=== PATIENT | male | born 1930 | race Caucasian/White ===

== ENCOUNTER 2017-06-07 14:12 | Observation (INO) ==
--- NOTE | 2017-06-07 15:07 | Emergency Department Note ---
Disposition Clinical Impression: TIA (transient ischemic attack) Qualifiers: Transient cerebral ischemia type: unspecified Qualified Code(s): G45.9 - Transient cerebral ischemic attack, unspecified Disposition: Admitted As Inpatient Condition: Fair Referrals: Nithin Oh DO [Primary Care Provider] - Forms: ED Satisfaction Letter Time of Disposition: 17:47 Weakness HPI - General Chief complaint: ED Weakness Stated complaint: face hot, hand went numb Time Seen by Provider: 06/07/17 14:39 Source: patient Mode of arrival: ambulatory Limitations: no limitations Nursing Notes Reviewed: Yes Vital Signs Reviewed: Yes - History of Present Illness HPI Narrative: 86-year-old male who states he developed acute onset left hand and arm numbness and weakness. States it occurred just prior to arrival. The patient states that his symptoms have improved since onset. 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 Constitutional: Denies: fever, chills, weakness, weight change Eyes: Denies: eye pain, eye discharge, vision change ENT ED: Denies: ear pain, throat pain, dental pain, hearing loss, epistaxis, congestion, dysphagia Cardiovascular: Denies: chest pain, palpitations, dyspnea on exertion, edema, syncope Respiratory: Denies: cough, dyspnea, wheezes, hemoptysis, stridor Gastrointestinal: Denies: abdominal pain, nausea, vomiting, diarrhea, constipation, hematemesis, melena, hematochezia Genitourinary: Denies: urgency, dysuria, frequency, hematuria Musculoskeletal: Denies: back pain, neck pain, arthralgia, myalgia Integumentary: Denies: rash, abrasion, lesions Neurological: Reports: weakness, numbness. Denies: headache, paresthesias, confusion, abnormal gait, vertigo Psychiatric: Denies: anxiety, depression, suicidal thoughts, homicidal thoughts , auditory hallucinations, visual hallucinations Endocrine: Denies: fatigue Hematological/Lymphatic: Denies: easy bleeding, easy bruising Allergic/Immunologic: Denies: facial swelling, urticaria Past Medical History - Past Medical History Medical history: Reports: hypertension Psychiatric history: Reports: no psych history - Social History Smoking Status: Never smoker Smokeless Tobacco Status: No Alcohol use: Reports: none Drug use: Reports: none Physical Exam - General Limitations: no limitations General appearance: alert, in no apparent distress - Head Head exam: atraumatic, normocephalic, normal inspection - Eye Eye exam: Present: normal appearance, PERRL, EOMI - ENT ENT exam: normal exam, normal oropharynx, mucous membranes moist - Neck Neck exam: Present: normal inspection, full ROM, trachea midline - Chest Chest inspection: Present: normal inspection, symmetric chest wall rise - Respiratory Respiratory exam: Present: normal lung sounds bilaterally - Cardiovascular Cardiovascular exam: Present: regular rate, normal rhythm, normal heart sounds - Abdominal Exam Abdominal exam: Present: soft, Non-Tender. Absent: tenderness, distention, guarding, rebound, rigidity - Extremities Exam Extremities exam: Present: normal inspection, full ROM. Absent: tenderness, pedal edema - Expanded Lower Extremity Exam Neurovascular/Tendon exam: Absent: motor deficit, sensory deficit, tendon deficit Gait: observed and normal - Back Exam Back exam: Present: normal inspection - Neurological Exam Neurological exam: Present: alert, oriented X3 - Psychiatric Psychiatric exam: Present: normal affect, normal mood - Skin Skin exam: Present: warm, dry, intact, normal color Course - Reevaluation(s) Reevaluation #1: 86-year-old who stated he had weakness and numbness in his left hand had trouble using it. That has since resolved. States it lasted several minutes. CT the head is negative for acute findings will admit for TIA evaluation. Time: 17:47 Vital Signs Temperature 98.2 F 06/07/17 14:22 Pulse Rate 69 06/07/17 14:22 Respiratory Rate 16 06/07/17 14:22 Blood Pressure 161/71 06/07/17 14:22 O2 Sat by Pulse Oximetry 98 06/07/17 14:22 Temperature 98.2 F 06/07/17 14:22 Pulse Rate 67 06/07/17 17:05 Respiratory Rate 16 06/07/17 17:05 Blood Pressure 173/85 06/07/17 17:05 O2 Sat by Pulse Oximetry 100 06/07/17 17:05 Oxygen Delivery Oxygen Delivery Room Air Weakness - Lab Data Lab results reviewed: Yes I reviewed the patient's lab results. Result diagrams: 06/07/17 15:39 06/07/17 15:39 Lab Results 06/07/17 06/07/17 06/07/17 Range/Units 14:48 15:39 15:39 WBC 6.5 (4.3-11.1) K/mcL RBC 4.55 (4.19-5.50) M/mcL Hgb 13.7 (12.9-16.9) g/dL Hct 41.2 (37.5-50.1) % MCV 90.5 (83.0-100.0) fL MCH 30.1 (28.0-33.3) pg MCHC 33.3 (31.6-35.5) g/dL RDW 13.3 (11.5-14.5) % Plt Count 204 (140-400) K/mcL MPV 10.9 (9.4-12.4) fL Immature Gran % 0.2 (0-4) % Seg Neutrophils % 59.3 % Lymphocytes % 27.3 % Monocytes % 11.1 % Eosinophils % 1.5 % Basophils % 0.6 % Neutrophils # 3.9 (1.6-8.9) K/mcL Lymphocytes # 1.8 (0.6-4.6) K/mcL Monocytes # 0.7 (0.0-1.3) K/mcL Eosinophils # 0.1 (0.0-0.6) K/mcL Basophils # 0.0 (0.0-0.2) K/mcL Sodium 139 (136-145) mEq/L Potassium 4.2 (3.5-4.5) mEq/L Chloride 101 (98-109) mEq/L Carbon Dioxide 31 H (19-29) mEq/L BUN 20 (8-26) mg/dL Creatinine 0.95 (0.72-1.25) mg/dL Est GFR ( Amer) > 60 (> 60) Est GFR (Non-Af Amer) > 60 (> 60) BUN/Creatinine Ratio 21 (6-26) Glucose 98 (70-99) mg/dL Calculated Osmolality 291 (280-300) Calcium 9.5 (8.6-10.8) mg/dL Total Bilirubin 0.3 (0.2-1.2) mg/dL AST 30 (5-34) Units/L ALT 14 (0-55) Units/L Alkaline Phosphatase 95 (38-126) Units/L Troponin I (0-0.03) ng/mL Serum Total Protein 7.6 (6.0-8.3) g/dL Albumin 3.6 (3.5-5.0) g/dL Globulin 4.0 H (2.4-3.5) g/dL Albumin/Globulin Ratio 0.9 L (1.1-2.2) Urine Color Yellow (Yellow) Urine Clarity Clear (Clear) Urine pH 7.0 (5.0-8.0) pH Units Ur Specific [place] 1.011 (1.010-1.025) Urine Protein Negative (Neg-Trace) mg/dL Urine Glucose (UA) Normal (Normal) mg/dL Urine Ketones Negative (Negative) mg/dL Urine Blood Negative (Negative) Urine Nitrite Negative (Negative) Urine Bilirubin Negative (Negative) Urine Urobilinogen Normal (Normal) mg/dL Ur Leukocyte Esterase Negative (Negative) Ur Culture Indicated? NO (NO) 06/07/17 Range/Units 15:39 WBC (4.3-11.1) K/mcL RBC (4.19-5.50) M/mcL Hgb (12.9-16.9) g/dL Hct (37.5-50.1) % MCV (83.0-100.0) fL MCH (28.0-33.3) pg MCHC (31.6-35.5) g/dL RDW (11.5-14.5) % Plt Count (140-400) K/mcL MPV (9.4-12.4) fL Immature Gran % (0-4) % Seg Neutrophils % % Lymphocytes % % Monocytes % % Eosinophils % % Basophils % % Neutrophils # (1.6-8.9) K/mcL Lymphocytes # (0.6-4.6) K/mcL Monocytes # (0.0-1.3) K/mcL Eosinophils # (0.0-0.6) K/mcL Basophils # (0.0-0.2) K/mcL Sodium (136-145) mEq/L Potassium (3.5-4.5) mEq/L Chloride (98-109) mEq/L Carbon Dioxide (19-29) mEq/L BUN (8-26) mg/dL Creatinine (0.72-1.25) mg/dL Est GFR ( Amer) (> 60) Est GFR (Non-Af Amer) (> 60) BUN/Creatinine Ratio (6-26) Glucose (70-99) mg/dL Calculated Osmolality (280-300) Calcium (8.6-10.8) mg/dL Total Bilirubin (0.2-1.2) mg/dL AST (5-34) Units/L ALT (0-55) Units/L Alkaline Phosphatase (38-126) Units/L Troponin I 0.00 (0-0.03) ng/mL Serum Total Protein (6.0-8.3) g/dL Albumin (3.5-5.0) g/dL Globulin (2.4-3.5) g/dL Albumin/Globulin Ratio (1.1-2.2) Urine Color (Yellow) Urine Clarity (Clear) Urine pH (5.0-8.0) pH Units Ur Specific [place] (1.010-1.025) Urine Protein (Neg-Trace) mg/dL Urine Glucose (UA) (Normal) mg/dL Urine Ketones (Negative) mg/dL Urine Blood (Negative) Urine Nitrite (Negative) Urine Bilirubin (Negative) Urine Urobilinogen (Normal) mg/dL Ur Leukocyte Esterase (Negative) Ur Culture Indicated? (NO) - Radiology Data Radiology results reviewed: Yes I reviewed the patient's radiology results. Chest X-Ray 06/07/17 15:01 IMPRESSION: No active cardiopulmonary disease D/ / Papo Alexis MD / Papo Alexis MD Interpreting Provider: Papo Alexis MD Head CT 06/07/17 15:01 IMPRESSION: No acute intracranial abnormality. D/ / Freddy Shah MD / Freddy Shah MD Interpreting Provider: Freddy Shah MD - EKG Data EKG attestation: Yes I reviewed and interpreted this EKG. EKG shows normal: sinus rhythm Rate: normal Rhythm: NSR Interpretation: no acute changes NIH Stroke Scale - Level of Consciousness LOC: Alert - LOC Questions LOC Questions: Answers both correctly - LOC Commands LOC Commands: Performs both correctly - Best Gaze Best Gaze: Normal - Visual Visual: No visual loss - Facial Palsy Facial Palsy: Normal - Motor Arms Motor Arm-Left: No drift for 10 seconds Motor Arm-Right: No drift for 10 seconds - Motor Legs Motor Leg-Left: No drift for 5 seconds Motor Leg-Right: No drift for 5 seconds - Limb Ataxia Limb Ataxia: Normal, No Ataxia - Sensory Sensory: Normal - Best Language Best Language: No aphasia - Dysarthria Dysarthria: Normal - Extinction and Inattention Extinction and Inattention: Normal - NIHSS Total Score NIHSS Total Score: 0
[2017-06-07 15:27] LABS: Bilirubin,Urine Negative (Negative); Blood,Urine Negative (Negative); Clarity,Urine Clear (Clear); Color,Urine Yellow (Yellow); Glucose,Urine (UA) Normal (Normal); Ketones,Urine Negative (Negative); Leukocyte Esterase,Urine Negative (Negative); Nitrite,Urine Negative (Negative); Protein,Urine Negative (Neg-Trace); Specific Gravity,Urine 1.011 (1.010-1.025); Urobilinogen,Urine Normal (Normal)
[2017-06-07 15:51] LABS: Basophils % 0.6 %; Eosinophils # 0.1 K/mcL (0.0-0.6); Eosinophils % 1.5 %; Hematocrit 41.2 % (37.5-50.1); Hemoglobin 13.7 g/dL (12.9-16.9); Immature Granulocytes % 0.2 % (0-4); Lymphocytes # 1.8 K/mcL (0.6-4.6); Lymphocytes % 27.3 %; Mean Corpuscular HGB Conc 33.3 g/dL (31.6-35.5); Mean Corpuscular Hemoglobin 30.1 pg (28.0-33.3); Mean Corpuscular Volume 90.5 fL (83.0-100.0); Mean Platelet Volume 10.9 fL (9.4-12.4); Monocytes # 0.7 K/mcL (0.0-1.3); Monocytes % 11.1 %; Neutrophils # 3.9 K/mcL (1.6-8.9); Platelet Count 204 K/mcL (140-400); Red Blood Count 4.55 M/mcL (4.19-5.50); Red Cell Distribution Width 13.3 % (11.5-14.5); Segmented Neutrophils % 59.3 %
[2017-06-07 16:05] LABS: Alanine Aminotransferase 14 Units/L (0-55); Albumin 3.6 g/dL (3.5-5.0); Albumin/Globulin Ratio 0.9 (1.1-2.2); Alkaline Phosphatase 95 Units/L (38-126); Aspartate Amino Transferase 30 Units/L (5-34); BUN/Creatinine Ratio 21 (6-26); Bilirubin,Total 0.3 mg/dL (0.2-1.2); Blood Urea Nitrogen 20 mg/dL (8-26); Calcium 9.5 mg/dL (8.6-10.8); Carbon Dioxide 31 mEq/L (19-29); Chloride 101 mEq/L (98-109); Glucose 98 mg/dL (70-99); Osmolality,Calculated 291 (280-300); Potassium 4.2 mEq/L (3.5-4.5); Sodium 139 mEq/L (136-145); Total Protein 7.6 g/dL (6.0-8.3); eGFR For African Americans > 60 (> 60); eGFR For Non-African Americans > 60 (> 60)
[2017-06-07] MEDS ORDERED: Naloxone 0.4 MG/ML INJ IVP PRN (18:31)
[2017-06-07] MEDS ORDERED: Acetaminophen 325 MG TABLET PO PRN (18:31)
--- NOTE | 2017-06-07 18:43 | Internal Med History&Physical ---
<Carmen Bartholomew M - Last Filed: 06/07/17 19:00> Date of Encounter: 06/07/17 Time of Encounter: 18:37 Assessment and Plan (1) TIA (transient ischemic attack) Status: Suspected Patient reports transient pain and weakness in left hand and arm. May be arthritis or muscle cramp, however, patient with HTN, and history of left carotid endarterectomy, so will observe for ACS vs. TIA. Patient with equal strength bilaterally on exam, no neurological deficits. Head CT negative for acute intracranial abnormality. aspirin 325mg once. Continue 81mg daily. lipid panel with AM labs. 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 May be arthritis or muscle cramp, however, patient with HTN, and history of left carotid endarterectomy, so will observe for ACS vs. TIA. Patient with equal strength bilaterally on exam, no neurological deficits. Troponin negative, ekg showed NSR. aspirin 325mg once. Continue 81mg daily. 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 Hydralazine 10mg IVP Q6hr PRN. Consider increasing doses of his home atenolol, HZTZ and felodipine. Qualifiers: Hypertension type: essential hypertension Qualified Code(s): I10 - Essential (primary) hypertension (4) DVT prophylaxis Status: Acute Internal Medicine - H&P: HPI Chief complaint: left arm weakness Admitted From: Emergency Dept Plans for Post Hospital Care: Home History of present illness: Mr. Flanagan is a 86 year old male with hypertension, hyperlipidemia, history of bladder cancer in remission, and history of left carotid endarterectomy presented to the ED today with complaints of left arm and hand pain. Patient reports that he suddenly felt pain in his left hand and it felt like his left hand and arm would not work. This lasted for a few minutes and resolved by the time of his presentation to the ED. He denies any lightheadedness, dizziness, headache, chest pain, palpitations, shortness of breath, nausea, vomiting or abdominal pain, fever, chills or sweats. Evaluation in the ED included troponin , which was negative at 0.00, EKG showed NSR, Heat cT showed no acute intracranial abnormality, CXR showed no active cardiopulmonary disease. Labs were grossly normal. On exam, patient alert and oriented in no acute distress. Heart had regular rate and rhythm, lungs were clear bilaterally to auscultation, cranial nerves intact, equal strength bilaterally, no facial droop , no slurred speech, no pronator drift. Past Med Surg Social Fam HX - Past Medical History Medical history: cancer (bladder cancer s/p surgery, in remission), hyperlipidemia, hypertension Psychiatric history: no psych history - Past Surgical History Surgical History: cancer surgery, vascular surgery (left carotid endarterectomy) - Social History Smoking Status: Never smoker Smokeless Tobacco Status: No Alcohol use: none Drug use: none - Family History Mother Living Status: Age at : 86 Father Living Status: Age at : 86 Internal Medicine - H&P: Meds Alfuzosin HCl [Uroxatral] 10 mg PO DAILY 06/07/17 [History] Aspirin Enteric Coated [Aspirin EC] 81 mg PO DAILY 06/07/17 [History] Atenolol [Tenormin] 25 mg PO DAILY 06/07/17 [History] Cyanocobalamin (Vitamin B-12) [Vitamin B-12] 100 mcg PO DAILY 06/07/17 [History] Escitalopram [Lexapro] 10 mg PO DAILY 06/07/17 [History] Felodipine [Felodipine ER] 2.5 mg PO DAILY 06/07/17 [History] hydroCHLOROthiazide [Hydrochlorothiazide] 12.5 mg PO DAILY 06/07/17 [History] Allergies No Known Allergies Allergy (Verified 06/07/17 14:24) All Systems PM: A 10-system review of systems was performed and is negative for pertinent findings except as documented above in the HPI. - Constitutional Constitutional: no chills, no fever(s), no night sweats - EENT Eyes: no change in vision, no discharge, no pain, no photophobia Ears: no ear discharge, no ear pain, no tinnitus Nose, mouth and throat: no dysphagia, no nasal discharge, no neck pain, no sore throat - Cardiovascular Cardiovascular ROS IM: no chest pain, no diaphoresis, no dyspnea, no lightheadedness, no palpitations, no syncope - Respiratory Respiratory: no cough, no dyspnea, no wheezing, no excessive phlegm production - Gastrointestinal Gastrointestinal: no abdominal pain, no diarrhea, no hematemesis, no hematochezia, no melena, no nausea, no vomiting - Musculoskeletal Musculoskeletal ROS IM: no numbness, no tingling Additional comments: transient left hand pain and weakness - Integumentary Integumentary IM: no rash, no unusual bruising - Neurological Neurological ROS: focal weakness (left arm and hand), no confusion, no convulsions, no numbness, no tingling, no tremor(s) - Hematologic/Lymphatic Hematologic/Lymphatic: no easy bruising - Constitutional Vitals: Temp Pulse Resp BP Pulse Ox 98.2 F 67 16 173/85 100 06/07/17 14:22 06/07/17 17:05 06/07/17 17:05 06/07/17 17:05 06/07/17 17:05 General appearance: Present: A&O X 3, pleasant, no acute distress - Head Head exam: Present: atraumatic, normocephalic - Eye Eye exam: Present: PERRL, conjuntiva pink, sclera anicteric Pupils: Present: PERRL - Neck Neck exam general surgery: Present: supple, trachea midline. Absent: lymphadenopathy - Respiratory Respiratory exam: Present: CTAB. Absent: accessory muscle use, rales, rhonchi, wheezes - Cardiovascular Cardiovascular exam: Present: RRR, +S1, +S2. Absent: diastolic murmur, gallop, rubs, systolic murmur - GI/Abdominal GI/Abdominal exam: Present: normal bowel sounds, soft, no peritoneal signs. Absent: distended, tenderness - Extremities Exam Extremities exam: Present: warm, radial pulses palpable and symmetrical. Absent : calf tenderness, cyanotic, pedal edema - Neurological Exam Neurological exam: Present: CN II-XII intact, oriented X3, no focal deficits. Absent: pronater drift, facial droop, speech deficit - Skin Skin exam: Present: dry, intact Internal Med - H&P Results - Labs CBC & Chem 7: 06/07/17 15:39 06/07/17 15:39 Labs: All Lab Results (24 Hours) 06/07/17 06/07/17 06/07/17 Range/Units 14:48 15:39 15:39 WBC 6.5 (4.3-11.1) K/mcL RBC 4.55 (4.19-5.50) M/mcL Hgb 13.7 (12.9-16.9) g/dL Hct 41.2 (37.5-50.1) % MCV 90.5 (83.0-100.0) fL MCH 30.1 (28.0-33.3) pg MCHC 33.3 (31.6-35.5) g/dL RDW 13.3 (11.5-14.5) % Plt Count 204 (140-400) K/mcL MPV 10.9 (9.4-12.4) fL Immature Gran % 0.2 (0-4) % Seg Neutrophils % 59.3 % Lymphocytes % 27.3 % Monocytes % 11.1 % Eosinophils % 1.5 % Basophils % 0.6 % Neutrophils # 3.9 (1.6-8.9) K/mcL Lymphocytes # 1.8 (0.6-4.6) K/mcL Monocytes # 0.7 (0.0-1.3) K/mcL Eosinophils # 0.1 (0.0-0.6) K/mcL Basophils # 0.0 (0.0-0.2) K/mcL Sodium 139 (136-145) mEq/L Potassium 4.2 (3.5-4.5) mEq/L Chloride 101 (98-109) mEq/L Carbon Dioxide 31 H (19-29) mEq/L BUN 20 (8-26) mg/dL Creatinine 0.95 (0.72-1.25) mg/dL Est GFR ( Amer) > 60 (> 60) Est GFR (Non-Af Amer) > 60 (> 60) BUN/Creatinine Ratio 21 (6-26) Glucose 98 (70-99) mg/dL Calculated Osmolality 291 (280-300) Calcium 9.5 (8.6-10.8) mg/dL Total Bilirubin 0.3 (0.2-1.2) mg/dL AST 30 (5-34) Units/L ALT 14 (0-55) Units/L Alkaline Phosphatase 95 (38-126) Units/L Troponin I (0-0.03) ng/mL Serum Total Protein 7.6 (6.0-8.3) g/dL Albumin 3.6 (3.5-5.0) g/dL Globulin 4.0 H (2.4-3.5) g/dL Albumin/Globulin Ratio 0.9 L (1.1-2.2) Urine Color Yellow (Yellow) Urine Clarity Clear (Clear) Urine pH 7.0 (5.0-8.0) pH Units Ur Specific [place] 1.011 (1.010-1.025) Urine Protein Negative (Neg-Trace) mg/dL Urine Glucose (UA) Normal (Normal) mg/dL Urine Ketones Negative (Negative) mg/dL Urine Blood Negative (Negative) Urine Nitrite Negative (Negative) Urine Bilirubin Negative (Negative) Urine Urobilinogen Normal (Normal) mg/dL Ur Leukocyte Esterase Negative (Negative) Ur Culture Indicated? NO (NO) 06/07/17 Range/Units 15:39 WBC (4.3-11.1) K/mcL RBC (4.19-5.50) M/mcL Hgb (12.9-16.9) g/dL Hct (37.5-50.1) % MCV (83.0-100.0) fL MCH (28.0-33.3) pg MCHC (31.6-35.5) g/dL RDW (11.5-14.5) % Plt Count (140-400) K/mcL MPV (9.4-12.4) fL Immature Gran % (0-4) % Seg Neutrophils % % Lymphocytes % % Monocytes % % Eosinophils % % Basophils % % Neutrophils # (1.6-8.9) K/mcL Lymphocytes # (0.6-4.6) K/mcL Monocytes # (0.0-1.3) K/mcL Eosinophils # (0.0-0.6) K/mcL Basophils # (0.0-0.2) K/mcL Sodium (136-145) mEq/L Potassium (3.5-4.5) mEq/L Chloride (98-109) mEq/L Carbon Dioxide (19-29) mEq/L BUN (8-26) mg/dL Creatinine (0.72-1.25) mg/dL Est GFR ( Amer) (> 60) Est GFR (Non-Af Amer) (> 60) BUN/Creatinine Ratio (6-26) Glucose (70-99) mg/dL Calculated Osmolality (280-300) Calcium (8.6-10.8) mg/dL Total Bilirubin (0.2-1.2) mg/dL AST (5-34) Units/L ALT (0-55) Units/L Alkaline Phosphatase (38-126) Units/L Troponin I 0.00 (0-0.03) ng/mL Serum Total Protein (6.0-8.3) g/dL Albumin (3.5-5.0) g/dL Globulin (2.4-3.5) g/dL Albumin/Globulin Ratio (1.1-2.2) Urine Color (Yellow) Urine Clarity (Clear) Urine pH (5.0-8.0) pH Units Ur Specific [place] (1.010-1.025) Urine Protein (Neg-Trace) mg/dL Urine Glucose (UA) (Normal) mg/dL Urine Ketones (Negative) mg/dL Urine Blood (Negative) Urine Nitrite (Negative) Urine Bilirubin (Negative) Urine Urobilinogen (Normal) mg/dL Ur Leukocyte Esterase (Negative) Ur Culture Indicated? (NO) - Diagnostic Studies Chest x-ray Additional comments: Chest X-Ray 06/07/17 15:01 IMPRESSION: No active cardiopulmonary disease D/ / Papo Alexis MD / Papo Alexis MD Interpreting Provider: Papo Alexis MD CT scan - head Additional comments: Head CT 06/07/17 15:01 IMPRESSION: No acute intracranial abnormality. D/ / Freddy Shah MD / Freddy Shah MD Interpreting Provider: Freddy Shah MD <Marquise Ness - Last Filed: 06/08/17 17:37> Date of Encounter: 06/08/17 Internal Medicine - H&P: HPI History of present illness: Mr. Flanagan is a 86 year old male All Systems PM: A 10-system review of systems was performed and is negative for pertinent findings except as documented above in the HPI. - Constitutional Vitals: Temp Pulse Resp BP Pulse Ox 97.6 F 62 15 133/57 97 06/08/17 11:33 06/08/17 11:33 06/08/17 11:33 06/08/17 11:33 06/08/17 11:33 Internal Med - H&P Results - Labs CBC & Chem 7: 06/08/17 04:21 06/08/17 04:21 Labs: Short CBC 06/08/17 Range/Units 04:21 WBC 7.5 (4.3-11.1) K/mcL Hgb 13.5 (12.9-16.9) g/dL Hct 40.7 (37.5-50.1) % Plt Count 203 (140-400) K/mcL Neutrophils # 4.4 (1.6-8.9) K/mcL BMP 06/08/17 04:21 Sodium 140 Potassium 3.9 Chloride 102 Carbon Dioxide 30 H BUN 18 Creatinine 0.90 Glucose 85 Calcium 9.3 Cardiac Enzymes 06/07/17 06/08/17 Range/Units 21:52 04:21 Troponin I 0.02 0.03 (0-0.03) ng/mL - Attending Attestation I examined this patient and my medical decision-making was reviewed with the STRUCTURAL LAYOUT WORKER.. I agree with the documented findings, disposition and treatment plan as described .
[2017-06-08 05:01] LABS: Basophils % 0.4 %; Eosinophils # 0.1 K/mcL (0.0-0.6); Eosinophils % 1.9 %; Hematocrit 40.7 % (37.5-50.1); Hemoglobin 13.5 g/dL (12.9-16.9); Immature Granulocytes % 0.4 % (0-4); Lymphocytes % 26.8 %; Mean Corpuscular HGB Conc 33.2 g/dL (31.6-35.5); Mean Corpuscular Hemoglobin 30.1 pg (28.0-33.3); Mean Corpuscular Volume 90.6 fL (83.0-100.0); Mean Platelet Volume 11.4 fL (9.4-12.4); Monocytes # 0.8 K/mcL (0.0-1.3); Monocytes % 11.1 %; Neutrophils # 4.4 K/mcL (1.6-8.9); Platelet Count 203 K/mcL (140-400); Red Blood Count 4.49 M/mcL (4.19-5.50); Red Cell Distribution Width 13.5 % (11.5-14.5); Segmented Neutrophils % 59.4 %
[2017-06-08 05:16] LABS: BUN/Creatinine Ratio 20 (6-26); Blood Urea Nitrogen 18 mg/dL (8-26); Calcium 9.3 mg/dL (8.6-10.8); Carbon Dioxide 30 mEq/L (19-29); Chloride 102 mEq/L (98-109); Chol/HDL Ratio 3.4 (0-4.9); Cholesterol 200 mg/dL (< 200); Glucose 85 mg/dL (70-99); HDL Cholesterol 58 mg/dL (40-59); LDL Cholesterol,Calculated 126 mg/dL (0-99); Osmolality,Calculated 291 (280-300); Potassium 3.9 mEq/L (3.5-4.5); Sodium 140 mEq/L (136-145); Triglycerides 80 mg/dL (< 150); eGFR For African Americans > 60 (> 60); eGFR For Non-African Americans > 60 (> 60)
[2017-06-08] MEDS: FELODIPINE 2.5 MG PO SCH ×2 (08:18→10:33)
[2017-06-08] MEDS ORDERED: Perflutren Lipid Microsphere 2 ML VIAL ONE (08:49)
[2017-06-08] MEDS ORDERED: Aspirin Enteric Coated 81 MG Tablet PO SCH (09:00)
[2017-06-08] MEDS ORDERED: hydroCHLOROthiazide 25 MG TABLET PO SCH (09:00)
[2017-06-08 11:36] VITALS: BP 133/57
--- NOTE | 2017-06-08 14:49 | Electrocardiograph Report ---
[address] [address] Test Date: 2017-06-07 Pat Name: Dilip Flanagan Department: 105 Room: [facility] Gender: M Cookie Padder: : 1930 Requested By: Yvon Collins Order Number: [id number] Reading MD: Maru Quinteros Measurements Intervals [place] Rate: 71 P: 74 [place]: 200 QRS: 64 QRSD: 85 T: 72 QT: 369 QTc: 392 Interpretive Statements SINUS RHYTHM Electronically Signed On 06-08-2017 14:47:18 EDT by Maru Quinteros
--- NOTE | 2017-06-08 16:06 | Discharge Summary ---
Date of Encounter: 06/08/17 Time of Encounter: 14:45 - Discharge Diagnosis (1) Left arm pain Priority: Primary Status: Resolved Comments: Patient denied pain or shortness of breath at time of discharge. Chest x-ray negative. Head CT negative. Urinalysis negative. Echocardiogram unremarkable with ejection fraction of 60% with mild diastolic dysfunction and mild AR. Asymptomatic while admitted. Follow-up outpatient (2) TIA (transient ischemic attack) Priority: Primary Status: Resolved Qualifiers: Transient cerebral ischemia type: unspecified Qualified Code(s): G45.9 - Transient cerebral ischemic attack, unspecified (3) HLD (hyperlipidemia) Priority: Secondary Status: Chronic Comments: lipid panel mildly abnormal with total cholesterol 200, LDL 126. Discussed with the patient possible initiation of statin however he declined at this time stating he would speak to his primary care provider. Recommended low- cholesterol diet. Qualifiers: Hyperlipidemia type: unspecified Qualified Code(s): E78.5 - Hyperlipidemia , unspecified (4) Hypertension Priority: Secondary Status: Chronic Comments: Blood pressure elevated at times however euvolemic at time of discharge. Recommend daily blood pressure checks at home, and following up outpatient. Qualifiers: Hypertension type: essential hypertension Qualified Code(s): I10 - Essential (primary) hypertension (5) DVT prophylaxis Priority: Primary Status: Acute Comments: Observation patient. Up ad glenna. - Discharge Medications Home Medications: Alfuzosin HCl [Uroxatral] 10 mg PO DAILY 06/07/17 [History] Aspirin Enteric Coated [Aspirin EC] 81 mg PO DAILY 06/07/17 [History] Atenolol [Tenormin] 25 mg PO DAILY 06/07/17 [History] Cyanocobalamin (Vitamin B-12) [Vitamin B-12] 100 mcg PO DAILY 06/07/17 [History] Escitalopram [Lexapro] 10 mg PO DAILY 06/07/17 [History] Felodipine [Felodipine ER] 2.5 mg PO DAILY 06/07/17 [History] hydroCHLOROthiazide [Hydrochlorothiazide] 12.5 mg PO DAILY 06/07/17 [History] Allergies/Adverse Reactions: Allergies No Known Allergies Allergy (Verified 06/07/17 14:24) Procedures/tests Complete & Pending: Procedures Performed prior 72 hours Category Date Time Status EV echocardiogram Routine Y 06/08/17 18:37 Completed Date of admission: 06/07/17 18:15 Primary care physician: Nithin Oh Discharging clinician: Beverly Ordonez Anticipated date of discharge: 06/08/17 - Patient Status Disposition: Home, Self-Care Condition: Fair Functional capacity at discharge: independent ambulation Overall status at discharge: patient is back to baseline - Discharge Instructions Follow Up With: Nithin Oh DO [Primary Care Provider] - 06/13/17 1:00 pm (This appointment will be with Vini Jamison CNP.) Additional Instructions: Follow-up with primary care provider as scheduled - Diet and Activity Activity: increase activity as tolerated Diet: low fat, low cholesterol, low salt diet Hospital course: Mr. Flanagan is a 86 year old male with past medical history of hypertension, hyperlipidemia, bladder cancer in remission, left CEA. Patient presented to the emergency department chief complaint of left arm and hand pain. Patient stating he suddenly felt pain in his left hand and felt like his left hand and left arm would not work. This lasted for a few minutes and resolved prior to his presentation to the emergency department. Patient denied lightheadedness, dizziness, headache, chest pain, palpitations, shortness of breath, abdominal pain. Workup in the emergency department unremarkable. Chest x-ray negative. Head CT negative. No ECG changes. Patient was admitted to the hospitalist service for further evaluation and management. Patient remained asymptomatic throughout this admission. He had no focal neurological weakness is present on examination. Echocardiogram unremarkable with ejection fraction of 60% with mild diastolic dysfunction and mild AR. Patient was euvolemic on examination and denied shortness of breath during this admission. He was borderline hypertensive at times however normotensive the time of discharge so his medications were not adjusted. He was instructed to check his blood pressure daily at home and keep a log for his primary care provider. Urinalysis was negative. He was discharged home in stable condition and back to his baseline with outpatient follow-up recommended. ITS Impressions Chest X-Ray 06/07/17 15:01 IMPRESSION: No active cardiopulmonary disease D/ / Papo Alexis MD / Papo Alexis MD Interpreting Provider: Papo Alexis MD Head CT 06/07/17 15:01 IMPRESSION: No acute intracranial abnormality. D/ / Freddy Shah MD / Freddy Shah MD Interpreting Provider: Freddy Shah MD Echo with Saline Contrast Indications: Left arm weakness Impressions: LVEF 60%. Normal LV chamber size, wall thickness and function. Mild left ventricular diastolic dysfunction. Normal right ventricular structure and function. No evidence of a PFO with agitated saline contrast and color Doppler. Mild aortic regurgitation, which is directed towards the anterior mitral valve leaflet. No evidence of pulmonary hypertension. - Time Spent with Patient Total time spent providing and/or coordinating discharge services: - Constitutional Vitals: Temp Pulse Resp BP Pulse Ox 97.6 F 62 15 133/57 97 06/08/17 11:33 06/08/17 11:33 06/08/17 11:33 06/08/17 11:33 06/08/17 11:33 General appearance: Present: A&O X 3, pleasant, no acute distress, underweight, answers questions appropriately - Head Head exam: Present: atraumatic, normocephalic - Eye Eye exam: Present: PERRL, conjuntiva pink, sclera anicteric Pupils: Present: PERRL - Neck Neck exam general surgery: Present: supple, trachea midline. Absent: lymphadenopathy - Respiratory Respiratory exam: Present: CTAB. Absent: accessory muscle use, rales, respiratory distress, rhonchi, wheezes - Cardiovascular Cardiovascular exam: Present: RRR, +S1, +S2. Absent: diastolic murmur, gallop, rubs, systolic murmur - GI/Abdominal GI/Abdominal exam: Present: normal bowel sounds, soft, no peritoneal signs. Absent: distended, tenderness - Extremities Exam Extremities exam: Present: warm, radial pulses palpable and symmetrical. Absent : calf tenderness, cyanotic, pedal edema - Neurological Exam Neurological exam: Present: alert, CN II-XII intact, normal gait, oriented X3, no focal deficits, strengths equal and symetr throughout. Absent: pronater drift, facial droop, speech deficit - Skin Skin exam: Present: dry, intact, normal color, warm
== END 2017-06-08 16:40 | disposition home or self-care (01) ==
LOC: EMEROO 14:12 → 3BNU 14:12
PROVIDERS: ADMIT Internal Medicine Endocrinology, Diabetes & Metabolism; ATTEND Nurse Practitioner Family